=== PATIENT | female | born 1995 | race Caucasian/White ===

== ENCOUNTER 2018-03-30 17:56 | Emergency (ER) | payer OTHER ==
--- NOTE | 2018-03-30 19:02 | EDPHY ---
H & P Stated Complaint: Upper back pain, sinus congestion, SOB, cough. Time Seen by Provider: 03/30/18 19:02 HPI/ROS: HPI: This is a 22-year-old female who presents with Chief Complaint: Upper back pain, sinus congestion, SOB, cough. Location: Chest Quality: Cough Duration: 8 days Signs and Symptoms: + low-grade fever, no nausea, no vomiting, no diarrhea, no urinary symptoms, no chest pain, no shortness of breath, no wheezing, +6 productive cough, no sore throat, no neck stiffness, no joint pain, no swollen glands, no ear pain, no rash Timing:, acute, worsening Severity: Moderate Context: Patient reports that she has a history asthma and does have an albuterol inhaler at home presents with 8 day history of productive cough of yellowish green sputum accompanied by sinus congestion and pressure for the last 4 days. Patient denies any lower extremity edema, wheezing. She reports that she did attempt to use her albuterol inhaler earlier today but she started to cough and had to stop using the inhaler. Modifying Factors: Albuterol inhaler Comment: ROS: see HPI Constitutional: + fever, no chills, no weight loss Eyes: No blurred vision Respiratory: No shortness of breath, + cough Cardiovascular: No chest pain, no palpitations Gastrointestinal: No nausea, no vomiting, no diarrhea, no hematemesis, no blood in stool Genitourinary: No dysuria, no blood in urine Extremities: No myalgias, no edema Neurologic: No weakness, no numbness Skin: No rashes, no petechiae Hematologic: No bruising, no bleeding MEDICAL/SURGICAL/SOCIAL HISTORY: Medical history: Asthma. Bronchitis. ADD. Surgical history: Denies Social history: Never smoked. Family history noncontributory. CONSTITUTIONAL: Well-appearing young adult white female, awake and alert, no obvious distress HEENT: Atraumatic and normocephalic, PERRL, EOMI. Nares patent; green rhinorrhea with mucosal edema. Bilateral reproducible maxillary sinus tenderness. Tympanic membranes clear. Oropharynx clear, no exudate and moist pink mucosa. Airway patent. No lymphadenopathy. No meningismus. Cardiovascular: Normal S1/S2, regular rate, regular rhythm, without murmur rub or gallop. PULMONARY/CHEST: Symmetrical and nontender. Clear to auscultation bilaterally. Good air movement. No accessory muscle usage. ABDOMEN: Soft, nondistended, nontender, no rebound, no guarding, no peritoneal signs, no masses or organomegaly. No CVAT. EXTREMITIES: 2/2 pulses, strength 5/5, no deformities, no clubbing, no cyanosis or edema. Negative Homans sign. NEUROLOGICAL: no focal neuro deficits. GCS 15. SKIN: Warm and dry, no erythema. no rash. Good capillary refill. Source: Patient Exam Limitations: No limitations - Personal History LMP (Females 10-55): Now Current Tetanus Diphtheria and Acellular Pertussis (TDAP): Yes - Medical/Surgical History Hx Asthma: Yes Hx Chronic Respiratory Disease: No Hx Diabetes: No Hx Cardiac Disease: No Hx Renal Disease: No Hx Cirrhosis: No Hx Alcoholism: No Hx HIV/AIDS: No Hx Splenectomy or Spleen Trauma: No Other PMH: Asthma. Bronchitis. - Social History Smoking Status: Never smoked Constitutional: Initial Vital Signs Temperature (C) 36.7 C 03/30/18 18:16 Heart Rate 85 03/30/18 18:16 Respiratory Rate 16 03/30/18 18:16 Blood Pressure 108/74 03/30/18 18:16 O2 Sat (%) 95 03/30/18 18:16 O2 Delivery Mode Room Air Allergies/Adverse Reactions: No Known Allergies Allergy (Unverified 03/30/18 18:19) Home Medications: Medication Instructions Recorded Adderall 10 MG (*) 03/30/18 RX: Azithromycin [Zithromax] 250 mg PO DAILY #6 tab 03/30/18 Wellbutrin 100mg (*) 03/30/18 predniSONE [predniSONE TAPER] 10 mg PO DAILY 6 Days ea 03/30/18 Medical Decision Making - Diagnostics Imaging Results: Imaging Impressions Chest X-Ray 03/30/18 19:21 Impression: No acute pulmonary disease. ED Course/Re-evaluation: Vital signs stable upon arrival. No signs of hypoxia, tachycardia. Chest x-ray my read shows no opacity, no effusion, no widened mediastinum, no pneumothorax. Symptoms greater than 8 days with a history of asthma will treat with azithromycin and prednisone taper. Patient reports that she already has an albuterol inhaler at home. PERC rule is low and PE can be ruled out. This patient was seen under the supervision of my secondary supervising physician. I evaluated care for this patient independently. Discussed this patient with Dr. Lepe who did not see the patient. Differential Diagnosis: Differential diagnosis includes but is not limited to bronchitis, asthma exacerbation, upper respiratory infection, pneumonia. Departure - Departure Disposition: Home, Routine, Self-Care Clinical Impression: Acute bacterial bronchitis Sinusitis Qualifiers: Sinusitis location: maxillary Chronicity: acute Recurrence: non-recurrent Qualified Code(s): J01.00 - Acute maxillary sinusitis, unspecified Condition: Good Instructions: Acute Bronchitis (ED) Additional Instructions: Return to the ER immediately if you experience fevers/chills, shortness of breath, abdominal pain, inability to tolerate oral intake, or any other symptoms that concern you. Referrals: Diya Khan MD [Primary Care Provider] - As per Instructions Prescriptions: RX: Azithromycin [Zithromax] 250 mg PO DAILY #6 tab predniSONE [predniSONE TAPER] 10 mg PO DAILY 6 Days ea
[2018-03-30 20:20] VITALS: BP 100/79
== END 2018-03-30 20:28 | disposition home or self-care (01) ==
DX: J20.8 Acute bronchitis due to other specified organisms (principal); J01.00 Acute maxillary sinusitis, unspecified; J45.909 Unspecified asthma, uncomplicated